=== PATIENT | female | born 1955 | race Caucasian/White ===

== ENCOUNTER → 2016-09-04 | Outpatient (CLI) | payer BC ==
[~2016-09-04] VITALS: Ht 157.5 cm; Wt 71.8 kg
[2016-09-04] VITALS (14 sets, daily range): BP systolic 109–133; BP diastolic 58–81; PULSE 70–79
[~2016-09-04] MED LIST: AMOXICILLIN 8751 TAB PO; ATACAND HCT 161 TAB PO; K-DUR20 MEQ PO; PROBIOTIC FORMU1 CAP PO; ZOCOR 20MG20 MG PO
== END ==
LOC: COL.RAD 12:16
DX: K57.20 Diverticulitis of large intestine with perforation and abscess without bleeding (principal)
CPT/HCPCS: C1729; J2250; J3010